=== PATIENT | female | born 1990 | race African-American/Black ===

== ENCOUNTER 2020-12-15 18:13 | Observation (INO) | payer MEDICAID, OTHER ==
[~2020-12-15] VITALS: Ht 162.6 cm; Wt 88.0 kg
[2020-12-15 19:52] LABS: CLARITY URINE TURBID (CLEAR); COLOR URINE YELLOW (YELLOW); KETONES URINE TRACE (NEGATIVE); LEUKOCYTE ESTERASE URINE 1+ (NEGATIVE); NITRITE URINE NEGATIVE (NEGATIVE); OCCULT BLOOD URINE NEGATIVE (NEGATIVE); PH URINE 6.5 (4.5-8.0); PROTEIN URINE TRACE (NEGATIVE); SPECIFIC GRAVITY URINE 1.023 (1.005-1.030)
[2020-12-15] MEDS ORDERED: PREN-134 PO (21:16)
== END 2020-12-15 21:25 | disposition home or self-care (01) ==
LOC: 8 EST LDRP 18:13
PROVIDERS: ADMIT Obstetrics & Gynecology; ATTEND Obstetrics & Gynecology
DX: O62.9 Abnormality of forces of labor, unspecified (principal); Z3A.35 35 weeks gestation of pregnancy
CPT/HCPCS: 76805; 76818; 81003; G0378; 99281